=== PATIENT | female | born 1960 | race Caucasian/White ===

== ENCOUNTER 2018-07-11 20:59 | Emergency (ER) | payer OTHER ==
--- NOTE | 2018-07-11 21:04 | PDOC ---
History of Present Illness <Urszula Santiago - Last Filed: 07/11/18 21:22> - History of Present Illness Initial Comments: The patient is a 58 year old female, with a significant PMH of primary biliary cirrhosis, who presents to the emergency department today complaining of a diffuse body rash for one day. Patient reports waking up this morning with a red rash that covered her neck, chest, and legs. Patient notes that the rash was evanescent, disappearing later that morning but redeveloping in the afternoon after lunch. The rash progressively worsened to cover her neck ( sparing her face), chest, back, bilateral upper extremities (sparing the hands) , and bilateral lower extremities (sparing the feet). Patient notes that it is only itchy and bothersome if she rubs the affected areas. She reports having pork from [employer] yesterday for lunch, but denies having a reaction to various types of pork in the past. Her notes their friends have had similar reactions in the past to this specific pork, but no one in the household who had this meal shares this reaction . Patient also endorses taking a small dose of klonopin during the middle of the night last night, which she has took 3-4 times in the past without any prior reaction. The patient denies chest pain, shortness of breath, headache and dizziness. Denies fever, chills, nausea, vomit, diarrhea and constipation. Denies dysuria, frequency, urgency and hematuria. Allergies: NKA Past surgical history: , meniscectomy Social history: No reported PCP: Dr. Jovon Antonio 07/11/18 21:30 <Kim Steinberg - Last Filed: 07/11/18 21:32> - General Chief Complaint: Rash Stated Complaint: RASH Time Seen by Provider: 07/11/18 21:04 Past History <Urszula Santiago - Last Filed: 07/11/18 21:22> <Kim Steinberg - Last Filed: 07/11/18 21:32> - Past Medical History Allergies/Adverse Reactions: Allergies Allergy/AdvReac Type Severity Reaction Status Date / Time No Known Allergies Allergy Unverified 07/11/18 21:01 Home Medications: Ambulatory Orders Diphenhydramine HCl [Benadryl -] 25 mg PO Q6H #28 capsule 04/14/19 Prednisone [Deltasone] 40 mg PO DAILY #8 tablet 07/11/18 Review of Systems - Review of Systems Comments:: GENERAL/CONSTITUTIONAL: No fever or chills. No weakness. HEAD, EYES, EARS, NOSE AND THROAT: No change in vision. No ear pain or discharge. No sore throat. CARDIOVASCULAR: No chest pain or shortness of breath. RESPIRATORY: No cough, wheezing, or hemoptysis. GASTROINTESTINAL: No nausea, vomiting, diarrhea or constipation. GENITOURINARY: No dysuria, frequency, or change in urination. MUSCULOSKELETAL: No joint or muscle swelling or pain. No neck or back pain. SKIN: No rash NEUROLOGIC: No headache, vertigo, loss of consciousness, or change in strength/ sensation. ENDOCRINE: No increased thirst. No abnormal weight change. HEMATOLOGIC/LYMPHATIC: No anemia, easy bleeding, or history of blood clots. ALLERGIC/IMMUNOLOGIC: +Diffuse rash covering the neck (excluding the face), back , abdomen, bilateral upper extremities (excluding the hands), and bilateral lower extremities (excluding the feet). 07/11/18 21:31 <Kim Steinberg - Last Filed: 07/11/18 21:32> *Physical Exam - Vital Signs Last Vital Signs Temp Pulse Resp BP Pulse Ox 98.2 F 77 14 135/86 100 07/11/18 21:04 07/11/18 21:04 07/11/18 21:04 07/11/18 21:04 07/11/18 21:04 - Physical Exam Comments: Awake, alert, and fully oriented, in no acute distress HEAD: No signs of trauma EYES: PERRLA, EOMI, sclera anicteric, conjunctiva clear ENT: Auricles normal inspection, hearing grossly normal, nares patent, oropharynx clear without exudates. Moist mucosa NECK: Normal ROM, supple, no lymphadenopathy, JVD, or masses LUNGS: Breath sounds equal, clear to auscultation bilaterally. No wheezes, and no crackles HEART: Regular rate and rhythm, normal S1 and S2, no murmurs, rubs or gallops ABDOMEN: Soft, nontender, normoactive bowel sounds. No guarding, no rebound. No masses EXTREMITIES: Normal range of motion, no edema. No clubbing or cyanosis. No cords, erythema, or tenderness NEUROLOGICAL: Cranial nerves II through XII grossly intact. Normal speech, normal gait SKIN: +Blanching urticarial rash that is on her neck, torso, bilateral arms, and bilateral legs sparing her face, hands, and feet. +There are several areas where the urticaria coalesce. No vesicles, purulence, or drainage. Warm, Dry, normal turgor, no lesions noted. 07/11/18 21:31 <Kim Steinberg - Last Filed: 07/11/18 21:32> ED Treatment Course - Medications Given in the ED: ED Medications Discontinued Medications Generic Name Dose Route Start Last Admin Trade Name Keshav PRN Reason Stop Dose Admin Diphenhydramine HCl 50 mg 07/11/18 21:14 07/11/18 21:21 Benadryl - PO 07/11/18 21:15 50 mg ONCE ONE Administration Prednisone 40 mg 07/11/18 21:14 07/11/18 21:21 Deltasone - PO 07/11/18 21:15 40 mg ONCE ONE Administration <Kim Steinberg - Last Filed: 07/11/18 21:32> *DC/Admit/Observation/Transfer - Discharge Dispostion Decision to Admit order: No <Urszula Santiago - Last Filed: 07/11/18 21:22> - Attestations Scribe Attestion: Documentation prepared by IDA Benites, acting as medical record retrieval specialist for Urszula Santiago MD. 07/11/18 21:31 <Kim Steinberg - Last Filed: 07/11/18 21:32> Diagnosis at time of Disposition: Urticaria - Discharge Dispostion Disposition: HOME Condition at time of disposition: Good - Prescriptions Prescriptions: Diphenhydramine HCl [Benadryl -] 25 mg PO Q6H #28 capsule Prednisone [Deltasone] 40 mg PO DAILY #8 tablet - Referrals Referrals: Jovon Antonio MD [Primary Care Provider] - Opal Scott MD [Staff Physician] - - Patient Instructions Printed Discharge Instructions: DI for General Allergic Reactions Additional Instructions: you came to the ED for rash, which is most likely caused by an allergic reaction. you should avoid clonapin and products from [facility] until you see an wort extractor. return to the ED if the rash has not resolved by tomorrow AM. you should return immediately if you have difficulty breathing, facial swelling, nausea or vomiting, abdominal pain, other new or worsening symptoms. Make sure you follow up with your primary care doctor tomorrow morning, and call an wort extractor to make an appointment as soon as possible. - Post Discharge Activity
[2018-07-11 21:06] VITALS: BP 135/86; PULSE 77; TEMP 98.2; BMI 26.8
[2018-07-11] MEDS ORDERED: predniSONE 20 MG TABLET (UD) PO ONE (21:14)
[2018-07-11] MEDS ORDERED: diphenhydrAMINE HCL 50 MG CAPSULE PO ONE (21:14)
[2018-07-11] MEDS ORDERED: diphenhydrAMINE HCL 50 MG CAPSULE ONE (21:21)
[2018-07-11] MEDS ORDERED: predniSONE 20 MG TABLET (UD) ONE (21:22)
== END 2018-07-11 21:26 | disposition home or self-care (01) ==
LOC: FER 20:59
DX: L50.9 Urticaria, unspecified (principal); K74.5 Biliary cirrhosis, unspecified
CPT/HCPCS: 99282-25

== ENCOUNTER 2020-12-26 05:58 | Day surgery (SDC) | payer OTHER ==
[2020-12-21 15:39] VITALS: BMI 27.1
[2020-12-26] MEDS ORDERED: MIDAZOLAM HCL 2 MG/2 ML SINGLE DOSE VIAL ONE (06:54)
[2020-12-26] MEDS ORDERED: PROPOFOL 20 ML ONE ×2 (07:00)
[2020-12-26] MEDS ORDERED: SUCCINYLCHOLINE CHLORIDE 200 MG/10 ML SYRINGE ONE (07:00)
[2020-12-26] MEDS ORDERED: LIDOCAINE HCL/PF 2% SDV 5ML VIAL ONE (07:00)
[2020-12-26] MEDS ORDERED: BUPIVACAINE HCL/EPINEPHRINE/PF 30 ML VIAL IJ ONE (07:21)
[2020-12-26] MEDS ORDERED: ONDANSETRON 4 MG/2 ML VIAL ONE (07:59)
[2020-12-26] MEDS ORDERED: DEXAMETHASONE SOD PHOSPHATE 4 MG/1 ML VIAL ONE (07:59)
[2020-12-26] MEDS ORDERED: KETOROLAC TROMETHAMINE 30 MG/1 ML VIAL ONE (08:06)
[2020-12-26] MEDS ORDERED: ceFAZolin SODIUM 1 GM VIAL ONE (08:25)
[2020-12-26] MEDS ORDERED: ONDANSETRON 4 MG/2 ML VIAL IVPUSH PRN (08:36)
[2020-12-26] MEDS ORDERED: oxyCODONE HCL 5 MG TABLET PO PRN ×2 (08:36)
[2020-12-26 08:37] VITALS: TEMP 97.5
[2020-12-26] MEDS ORDERED: LACTATED RINGERS SOLUTION 1,000 ML IV SCH (08:45)
[2020-12-26 10:00] VITALS: BP 118/70; PULSE 84
== END 2020-12-26 10:15 | disposition home or self-care (01) ==
LOC: FASU 05:58
PROVIDERS: ATTEND Orthopaedic Surgery
PROC: 0SBD4ZZ Excision of Left Knee Joint, Percutaneous Endoscopic Approach (ICD-10-PCS; principal; 2020-12-26 07:53)
DX: S83.242A Other tear of medial meniscus, current injury, left knee, initial encounter (principal); M65.862 Other synovitis and tenosynovitis, left lower leg; X58.XXXA Exposure to other specified factors, initial encounter; Y93.9 Activity, unspecified; Y92.9 Unspecified place or not applicable
CPT/HCPCS: 94760